=== PATIENT | male | born 1980 | race Caucasian/White ===

== ENCOUNTER 2021-05-06 10:29 | Emergency (ER) | payer OTHER ==
[~2021-05-06] VITALS: Ht 167.6 cm; Wt 75.0 kg
--- NOTE | 2021-05-06 11:07 | PHYS DOC ---
Past Medical History Past Surgical History: No Surgical History General Adult EDM: Chief Complaint: CHEST PAIN HPI: HPI: Patient is a 40 year old male with history of tobacco use who presents with left-sided chest pain. Woke him up from sleep at 4 AM this morning. Centers over the left pectoral muscle and radiates towards the left shoulder and into the arm. Constant. Described as tightness/tense. Associated with some shortness of breath. Worse with left arm movements and slightly worse with exertion. Never had similar pain. Does not recall any trauma or overuse injuries to the left shoulder/arm. No fevers or chills, cough, congestion, sore throat. No lower extremity edema, recent surgeries, immobilizations. No long-term medications. No hemoptysis. No history of HTN, HLD, DM. No family history of early heart disease. Review of Systems: Review of Systems: Constitutional: Denies fever or chills. [] Eyes: Denies change in visual acuity. [] HENT: Denies nasal congestion or sore throat. [] Respiratory: Denies cough. Reports mild shortness of breath. Cardiovascular: Reports left-sided chest pain. Denies edema. [] GI: Denies abdominal pain, nausea, vomiting, bloody stools or diarrhea. [] : Denies dysuria. [] Musculoskeletal: Denies back pain or joint pain. [] Integument: Denies rash. [] Neurologic: Denies headache, focal weakness or sensory changes. [] Endocrine: Denies polyuria or polydipsia. [] Lymphatic: Denies swollen glands. [] Psychiatric: Denies depression or anxiety. [] Heart Score: C/O Chest Pain: Yes HEART Score for Chest Pain: HEART Score for Chest Pain Response (Comments) Value History Slighlty/Non-Suspicious 0 ECG Nonspecific Repolarizatio 1 Age < 45 0 Risk Factors 1 or 2 Risk Factors 1 Total 2 Risk Factors: Risk Factors: Tobacco use Risk Scores: Score 0 - 3: 2.5% MACE over next 6 weeks - Discharge Home Physical Exam: PE: Constitutional: Well developed, well nourished, no acute distress, non-toxic appearance. [] HENT: Normocephalic, atraumatic, bilateral external ears normal, oropharynx moist, no oral exudates, nose normal. [] Eyes: PERRLA, EOMI, conjunctiva normal, no discharge. [] Neck: Normal range of motion, no tenderness, supple, no stridor. [] Cardiovascular:Heart rate regular rhythm, no murmur [] Lungs & Thorax: Bilateral breath sounds clear to auscultation. Point tenderness over the left pectoral muscle, reproduces pain. Pain is worse with a push-up motion and flexion of the left shoulder. [] Abdomen: Bowel sounds normal, soft, no tenderness, no masses, no pulsatile masses. [] Skin: Warm, dry, no erythema, no rash. [] Back: No tenderness, no CVA tenderness. [] Extremities: No tenderness, no cyanosis, no clubbing, ROM intact, no edema. [] Neurologic: Alert and oriented X 3, normal motor function, normal sensory function, no focal deficits noted. [] Psychologic: Affect normal, judgement normal, mood normal. [] Current Patient Data: Vital Signs: Vital Signs Date Time Temp Pulse Resp B/P (MAP) Pulse Ox O2 Delivery O2 Flow Rate FiO2 05/06/21 10:54 98.1 83 16 127/69 (88) 97 Room Air 98.1 EKG: EKG: Sinus rhythm. Rate 89. Normal axis. T wave inversion in lead III. No Q waves or ST-T segment changes. [] Radiology/Procedures: Radiology/Procedures: [] Impression: [facility] [address] [place] [address] IMAGING REPORT Signed PATIENT: JEFF LEIJA ACCOUNT: [id number] : 1980 LOCATION: ER AGE: 40 SEX: M EXAM STATUS: PRE ER ORD. PHYSICIAN: LINDA CARNEY MD REASON: left chest pain PROCEDURE: CHEST AP ONLY XR CHEST 1V History: Reason: left chest pain / Spl. Instructions: / History: Comparison: July 05, 2016 Findings: No consolidation or pleural effusion. Normal heart size. No pneumothorax. Impression: 1. No acute cardiopulmonary process. Electronically signed by: Yoly Brito DO (05/06/2021 12:09 PM) [id number] DICTATED and SIGNED BY: YOLY BRITO DO DATE: 05/06/21 [id number] 0 Course & Med Decision Making: Course & Med Decision Making Pertinent Labs and Imaging studies reviewed. (See chart for details) Patient 40-year-old male with history of tobacco use who presents with left- sided chest pain. Symptoms seem to focus on the left pectoralis muscle and are reproducible with actions that engage the pec muscle. EKG with T wave inversion in lead III, but otherwise normal. Troponin > 6 hours after pain onset is negative, ruling out ACS. HEART score = 2. Feel he is safe for discharge without outpatient follow up, as this seems most likely musculoskeletal. Also considered PE, PERC negative. Chest x-ray without evidence of pneumothorax, acute pulmonary process, or mediastinal widening. Pulses are symmetric. Not consistent with aortic dissection. Dragon Disclaimer: Luminal Disclaimer: This electronic medical record was generated, in whole or in part, using a voice recognition dictation system. Departure Departure Impression: Primary Impression: Atypical chest pain Disposition: HOME / SELF CARE / HOMELESS Condition: STABLE Additional Instructions: Your work-up was reassuring against life-threatening causes of your chest discomfort. This seems most consistent with a muscular strain of your left pectoralis muscle. Please rest the area, and use ice, and Tylenol and ibuprofen as needed. For pain tylenol and ibuprofen are best used on a schedule. Please alternate between the two. -Tylenol 1000 mg every 6 hours (do not exceed 4000 mg in one day) -Ibuprofen 400 mg every 6 hours. Take with food. Do not take for more than 1 week. I would like you to follow-up with your primary care doctor. If you develop severe shortness of breath, or other new/concerning symptoms you can always return to the emergency department for reevaluation. If you do not have a PCP, please call the number for the [facility] at [phone]. LINDA CARNEY MD May 06, 2021 11:07
[2021-05-06] MEDS ORDERED: KETOROLAC 15 MG/ML VIAL. IVP ONE (11:15)
[2021-05-06 11:36] LABS: BASO % 1 % (0-3); EOS # 0.1 x10^3/uL (0.0-0.7); EOS % 2 % (0-3); HEMATOCRIT 41.5 % (39.0-53.0); HEMOGLOBIN 14.7 g/dL (13.0-17.5); LYMPH # 1.6 x10^3/uL (1.0-4.8); LYMPH % 38 % (24-48); MEAN CORPUSCULAR HEMOGLOBIN 33 pg (25-35); MEAN CORPUSCULAR HGB CONC 35 g/dL (31-37); MEAN CORPUSCULAR VOLUME 92 fL (79-100); MONO # 0.6 x10^3/uL (0.0-1.1); MONO % 14 % (0-9); NEUT # 1.9 x10^3/uL (1.8-7.7); NEUT % 46 % (31-73); PLATELET COUNT 201 x10^3/uL (140-400); RED BLOOD COUNT 4.49 x10^6/uL (4.30-5.70); RED CELL DISTRIBUTION WIDTH 12.2 % (11.5-14.5); WHITE BLOOD COUNT 4.2 x10^3/uL (4.0-11.0)
[2021-05-06 11:45] LABS: CALCIUM 8.7 mg/dL (8.5-10.1); CREATININE 0.7 mg/dL (0.7-1.3); GFR 124.9; POTASSIUM 3.7 mmol/L (3.5-5.1)
[2021-05-06] MEDS ORDERED: KETOROLAC 15 MG/ML VIAL. ONE (11:50)
--- NOTE | 2021-05-06 12:11 | RAD ---
XR CHEST 1V History: Reason: left chest pain / Spl. Instructions: / History: Comparison: July 05, 2016 Findings: No consolidation or pleural effusion. Normal heart size. No pneumothorax. Impression: 1. No acute cardiopulmonary process. Electronically signed by: Amando Buitrago DO (05/06/2021 12:09 PM) [id number]
[2021-05-06] MEDS ORDERED: ACETAMINOPHEN 500 MG TABLET PO ONE (12:15)
[2021-05-06 12:51] VITALS: BP 107/58
--- NOTE | 2021-05-06 13:07 | EKG ---
[facility] [address] [place] [address] Test Date: 2021-05-06 Test Time: 10:35:51 Pat Name: JEFF LEIJA Department: Room: Gender: M Professor Of Engineering: : 1980 Requested By: LINDA CARNEY Order Number: [id number] Reading MD: Sregio Portillo MD Measurements Intervals [place] Rate: 89 P: 41 SD: 156 QRS: -1 QRSD: 96 T: 14 QT: 360 QTc: 439 Interpretive Statements SINUS RHYTHM Electronically Signed On 05-08-2021 20:51:12 EXERCISE PHYSIOLOGY PROFESSOR by Sergio Portillo MD
== END 2021-05-06 13:50 | disposition home or self-care (01) ==
LOC: ER 10:29
DX: R07.89 Other chest pain (principal); R06.02 Shortness of breath
CPT/HCPCS: 36415; 71045; 80048; 84484; 85025; 93005; 99285-25